=== PATIENT | female | born 1960 | race Caucasian/White ===

== ENCOUNTER 2017-08-31 10:19 | Emergency (ER) | payer MEDICAID ==
[~2017-08-31] VITALS: Ht 154.9 cm; Wt 70.8 kg
[~2017-08-31 10:19] MED LIST: BEN50 PO; BENA10TA2 PO; CLON0.5T4 PO; PRO20 PO; PRO40 PO
[2017-08-31 10:20] VITALS: BP_SYST 164
[2017-08-31] MEDS ORDERED: ALPR0.5T96 PO (11:04)
[2017-08-31] MEDS ORDERED: MET10 PO (11:04)
[2017-08-31] MEDS ORDERED: DIPHENHYDRAMINE INJ 50 MG/ML VIAL IVP ONE ×2 (11:15→13:00)
[2017-08-31] MEDS ORDERED: MORPHINE 4 MG/ML INJ. SYRINGE IVP ONE ×2 (11:15→12:15)
[2017-08-31 11:31] LABS: BASOPHILS # (AUTO) 0.1 K/uL (0.0-0.2); BASOPHILS % (AUTO) 1.1 % (0.0-2.0); EOSINOPHILS # (AUTO) 0.1 K/uL (0.0-0.4); EOSINOPHILS % (AUTO) 1.3 % (0.0-4.0); HEMATOCRIT 44.3 % (36-48); HEMOGLOBIN 14.9 g/dL (12.0-16.0); LYMPHOCYTES # (AUTO) 1.6 K/uL (1.0-5.5); LYMPHOCYTES % (AUTO) 16.6 % (20.5-51.5); MEAN CORPUSCULAR HEMOGLOBIN 33 pg (27-31); MEAN CORPUSCULAR HGB CONC 34 % (32-36); MEAN CORPUSCULAR VOLUME 97 fL (79.0-98.0); MONOCYTES # (AUTO) 0.4 K/uL (0.0-1.0); MONOCYTES % (AUTO) 4.3 % (1.7-9.3); NEUTROPHILS # (AUTO) 7.3 K/uL (1.8-7.7); NEUTROPHILS % (AUTO) 76.7 % (40.0-70.0); PLATELET COUNT (AUTO) 260 K/uL (130-430); RED BLOOD CELL COUNT(AUTO) 4.55 MIL/uL (4.2-6.2); RED CELL DISTRIBUTION WIDTH 14.3 % (9.0-15.0); WHITE BLOOD COUNT (AUTO) 9.5 K/uL (4.8-10.8)
[2017-08-31 11:52] LABS: CALCIUM 8.1 mg/dL (8.4-11.0); CREATININE 1.16 mg/dL (0.55-1.30)
[2017-08-31 11:53] LABS: POTASSIUM 2.9 mmol/L (3.5-5.1)
[2017-08-31 11:57] LABS: TOTAL BILIRUBIN 0.8 mg/dL (0.0-1.0)
[2017-08-31] MEDS ORDERED: KCL 20 mEq in 100 mL (PREMIX) 100 ML IV ONE (13:00)
[2017-08-31 13:08] LABS: BILIRUBIN,URINE 1+ (NEGATIVE); CLARITY/URINE HAZY (CLEAR); COLOR,URINE YELLOW (YELLOW); GLUCOSE,URINE NEGATIVE (NEGATIVE); KETONES,URINE NEGATIVE (NEGATIVE); LEUKOCYTE ESTERASE ,URINE NEGATIVE (NEGATIVE); NITRITE, URINE NEGATIVE (NEGATIVE); PH,URINE 5.5 (5.0-8.0); PROTEIN URINE TRACE (NEGATIVE); UROBILINOGEN,URINE 0.2 (0.2-1.0)
[2017-08-31 13:19] LABS: BLOOD, URINE TRACE (NEGATIVE)
[2017-08-31 13:22] LABS: BACTERIA,URINE MODERATE /HPF (None Seen)
[2017-08-31 13:23] LABS: MUCUS,URINE 1+ /LPF (None Seen)
[2017-08-31] MEDS ORDERED: POTASSIUM CHLORIDE 20 MEQ TAB.PRT.SR PO ONE (14:30)
[2017-08-31 15:22] VITALS: BP_SYST 160
== END 2017-08-31 15:22 | disposition home or self-care (01) ==
LOC: SED 10:19
DX: K52.9 Noninfective gastroenteritis and colitis, unspecified (principal); E87.6 Hypokalemia; I10 Essential (primary) hypertension; F17.210 Nicotine dependence, cigarettes, uncomplicated; Z90.49 Acquired absence of other specified parts of digestive tract; Z88.5 Allergy status to narcotic agent
CPT/HCPCS: 36415; 74176; 76856; 80053; 81000; 83690; 85025; 87086; 96365; 96366; 96368; 96375; 96376; 99285; J1200; J2270; J3480; J7030

== ENCOUNTER 2017-10-19 22:28 | Emergency (ER) | payer OTHER, MEDICAID ==
[~2017-10-19] VITALS: Ht 154.9 cm; Wt 68.0 kg
[~2017-10-19 22:28] MED LIST changes: +ALPR0.5T96 PO; -BEN50 PO; -CLON0.5T4 PO; +MET10 PO; -PRO20 PO; -PRO40 PO
[2017-10-19 22:42] VITALS: BP_SYST 124
[2017-10-19] MEDS ORDERED: KETOROLAC TROMETHAMINE 60 MG/2 ML VIAL IM ONE (23:30)
[2017-10-19 23:50] VITALS: BP_SYST 118
== END 2017-10-19 23:50 | disposition home or self-care (01) ==
LOC: SED 22:28
DX: S09.90XA Unspecified injury of head, initial encounter (principal); F41.9 Anxiety disorder, unspecified; I10 Essential (primary) hypertension; Z88.5 Allergy status to narcotic agent; Z90.49 Acquired absence of other specified parts of digestive tract; W06.XXXA Fall from bed, initial encounter; Y93.89 Activity, other specified; Y92.89 Other specified places as the place of occurrence of the external cause; Y99.8 Other external cause status
CPT/HCPCS: 96372; 99283; J1885